=== PATIENT | female | born 1990 | race Caucasian/White ===

== ENCOUNTER 2017-04-24 11:34 | Emergency (ER) | payer OTHER ==
[~2017-04-24] VITALS: Ht 157.5 cm; Wt 66.0 kg
[2017-04-24 11:37] VITALS: BP 148/96; PULSE 114; TEMP 36.7; O2SAT 97; Ht 157.5 cm; Wt 66.0 kg
--- NOTE | 2017-04-24 12:14 | EMERGENCY ROOM VISIT NOTE ---
ED Visit Note First contact with patient: 11:43 CHIEF COMPLAINT: Right hand injury HISTORY OF PRESENT ILLNESS: This [id number], 26-year-old female patient presented to the emergency department, ambulatory, approximately 4 hours after they injured the right hand by smashing it on a metal rack. The patient states she was attempting to move vegetables in a freezer, when her hand slipped, striking the fifth MCP joint and metacarpal against the metal rack. The patient rates the pain as sharp and 4/10. The patient denies any numbness or tingling. The patient does not have injuries to the wrist. The patient has not had a previous fracture to this hand. REVIEW OF SYSTEMS: A 6 system review of systems was completed with positives and pertinent negatives in the HPI. ALLERGIES: None MEDICATIONS: Effexor, Ativan, amitriptyline, magnesium, Imitrex, propranolol PMH: Migraines, anxiety SOCIAL HISTORY: The patient lives locally with family. She denies drug, alcohol , tobacco use. PHYSICAL EXAM: Vital Signs: Reviewed Nurse's notes, vital signs stable. GENERAL : This is a 26-year-old white female, in no acute distress, texting on her cell phone, well-developed, well-nourished. MUSCULOSKELETAL: There is no deformity of the right hand. There is tenderness and ecchymosis over the fifth metacarpal and MCP joint. There is no thenar or hypothenar eminence atrophy. Normal thumb opposition to all fingers. [employer] strength 5/5. Strength against resistance of the fifth phalange is 5/5. There is no laceration. Capillary refill less than 2 seconds. No tenderness of the fingers or wrist. Full range of motion of the wrist, hand, and fingers. No snuff box tenderness. Radial pulse 2+. NEURO: Alert and oriented to person, place, and time. Normal sensation to light and sharp touch. RADIOLOGY: RIGHT HAND 3 VIEWS CLINICAL HISTORY: Right hand injury. FINDINGS: 3 views of the right hand are obtained. No prior studies are available for comparison at the time of dictation. The skeletal structures are well mineralized. No fracture is seen. The joint spaces of the hand are well-maintained. The overlying soft tissues are normal as imaged. IMPRESSION: There is no radiographic evidence of right hand fracture. Electronically signed by: Sagar Crowley M.D. 04/24/2017 12:16 PM Dictated Date/Time: 04/24/2017 12:15 PM EMERGENCY DEPARTMENT COURSE: I examined the patient. An x-ray of the right hand was reviewed by myself and radiologist and shows no acute fracture or dislocation. I discussed the findings with the patient at bedside. I did offer a splint, but did not recommend this, as there is no fracture. The patient declines. She was offered pain medication, and declined as well. Discharge instructions reviewed. The patient was discharged home in good condition. I attest that I have personally reviewed the patient's current medication list. Blood Pressure Screening: Patient was found to have a slightly elevated blood pressure due to circumstances. I do not believe that the patient requires hypertension monitoring. Differential diagnosis includes fracture, sprain, strain, contusion, and others DIAGNOSIS: Right hand contusion Current/Historical Medications Scheduled Amitriptyline Hcl (Elavil), 25 MG PO HS Magnesium Oxide (Mag-Ox), 400 MG PO HS Propranolol (Inderal), 20 MG PO BID Sumatriptan Succinate (Imitrex), 50 MG PO PRN Venlafaxine Hcl (Effexor Xr), 1 CAP PO HS Scheduled PRN Lorazepam (Ativan), 0.5 MG PO BID PRN for Anxiety Allergies Coded Allergies: No Known Allergies (Unverified , 04/24/17) Vital Signs Date Time Temp Pulse Resp B/P (MAP) Pulse Ox O2 Delivery O2 Flow Rate FiO2 04/24/17 11:37 36.7 114 18 148/96 97 Room Air Departure Information Impression Primary Impression: Contusion of right hand, initial encounter Dispostion Home / Self-Care Condition GOOD Referrals No Doctor, Assigned (PCP) Patient Instructions ED Contusion Hand, My [facility] Additional Instructions You were seen in the emergency department today for a contusion of the right hand. As discussed, x-ray did not reveal any obvious fracture, dislocation, or other abnormality. Ibuprofen(Motrin, Advil) may be used for fever or pain. Use 600mg every six hours as needed. Take with food. Avoid using more than 2400mg in a 24 hour period. Do not use 2400mg per day for more than three consecutive days without physician direction. Prolonged inappropriate use can lead to stomach upset or ulcers. (AND/OR) Acetaminophen(Tylenol) may be used for fever or pain. Use 1000mg every six hours as needed. Avoid using more than 3000mg in a 24 hour period. Ice compresses for 20 minutes at a time four times daily for 2-3 days. Rest and elevate your injury. Return to the ER immediately for any numbness, tingling, severe pain, extreme swelling in the extremity or as needed. Follow-up with your primary care physician in 2 to 3 days for a recheck of your current condition.
[2017-04-24] MEDS ORDERED: AMT50 PO (12:17)
[2017-04-24] MEDS ORDERED: SUMA50TA15 PO (12:17)
[2017-04-24] MEDS ORDERED: MAGN400T5 PO (12:17)
[2017-04-24] MEDS ORDERED: VENL75CA PO (12:17)
[2017-04-24] MEDS ORDERED: PROP20TA67 PO (12:17)
[2017-04-24] MEDS ORDERED: LORA-741 PO (12:17)
--- NOTE | 2017-04-24 12:17 | DIAGNOSTIC IMAGING REPORT ---
RIGHT HAND 3 VIEWS CLINICAL HISTORY: Right hand injury. FINDINGS: 3 views of the right hand are obtained. No prior studies are available for comparison at the time of dictation. The skeletal structures are well mineralized. No fracture is seen. The joint spaces of the hand are well-maintained. The overlying soft tissues are normal as imaged. IMPRESSION: There is no radiographic evidence of right hand fracture. Electronically signed by: Sagar Crowley M.D. 04/24/2017 12:16 PM Dictated Date/Time: 04/24/2017 12:15 PM
== END 2017-04-24 13:01 | disposition home or self-care (01) ==
LOC: C.EDB 11:36 → C.EDD 13:01
DX: S60.221A Contusion of right hand, initial encounter (principal); W22.8XXA Striking against or struck by other objects, initial encounter; Y92.89 Other specified places as the place of occurrence of the external cause; Y99.0 Civilian activity done for income or pay; G43.909 Migraine, unspecified, not intractable, without status migrainosus; F41.9 Anxiety disorder, unspecified; Z79.899 Other long term (current) drug therapy